=== PATIENT | male | born 1965 | race Caucasian/White ===

== ENCOUNTER 2022-04-24 02:59 | Emergency (ER) | payer OTHER ==
[~2022-04-24] VITALS: Ht 172.7 cm; Wt 77.1 kg
--- NOTE | 2022-04-24 03:20 | NUR ---
Dr. Elizabeth at bedside. MSE in progress.
[2022-04-24] MEDS ORDERED: ONDANSETRON HCL 4 MG TABLET PO ONE (04:00)
[2022-04-24] MEDS ORDERED: HYDROMORPHONE 1 MG/1 ML DISP.SYRIN IM ONE (04:00)
[2022-04-24] MEDS ORDERED: KETOROLAC TROMETHAMINE 60 MG INJ IM ONE ×2 (04:00→04:06)
[2022-04-24] MEDS ORDERED: HYDROMORPHONE 1 MG/1 ML DISP.SYRIN ONE (04:05)
[2022-04-24] MEDS ORDERED: ONDANSETRON HCL 4 MG TABLET ONE (04:05)
[2022-04-24] MEDS ORDERED: HYDROMORPHONE 2 MG/1 ML DISP.SYRIN ONE (04:06)
[2022-04-24] MEDS ORDERED: OXYC-128 PO (04:12)
--- NOTE | 2022-04-24 04:20 | NUR ---
Patient discharged to home in stable condition. A/O x 4. NAD noted. Ambulatory with a steady gait. All belongings with patient. Written and verbal after care instructions given. Patient verbalizes understanding of instructions. Stressed follow up or return to ER for worsening s/s.
[2022-04-24 04:23] VITALS: BP 149/88
== END 2022-04-24 04:20 | disposition home or self-care (01) ==
LOC: ER 03:12
DX: M54.50 Low back pain, unspecified (principal); R07.9 Chest pain, unspecified; S80.01XA Contusion of right knee, initial encounter; W01.0XXA Fall on same level from slipping, tripping and stumbling without subsequent striking against object, initial encounter; Y93.02 Activity, running; Y92.89 Other specified places as the place of occurrence of the external cause; Z88.0 Allergy status to penicillin; Z88.2 Allergy status to sulfonamides; Z91.018 Allergy to other foods; Z85.828 Personal history of other malignant neoplasm of skin; I25.2 Old myocardial infarction
CPT/HCPCS: 99284; 96372 ×2; J1885; J1170 ×2; A4663; Q0162